=== PATIENT | female | born 1955 | race American Indian/Alaskan Native ===

== ENCOUNTER 2020-09-24 07:52 | Outpatient (CLI) | payer BC ==
--- NOTE | 2020-09-24 09:02 | Ultrasound Report ---
ULTRASOUND ABDOMEN, COMPLETE INDICATION: EPIGASTRIC PAIN, FUNCTIONAL DYSPEPSIA. COMPARISON: None available. FINDINGS: PANCREAS: No significant abnormality. ABDOMINAL AORTA: No significant abnormality. IVC: No significant abnormality.. LIVER: 14.5 cm in length with mild diffuse increased echogenicity compared to the right renal cortex. No focal lesion and normal directional blood flow in the main portal vein. GALLBLADDER: No significant abnormality. BILE DUCTS: No significant abnormality. Common bile duct measures 3.7 mm. KIDNEYS: Right: No significant abnormality Left: No significant abnormality SPLEEN: No significant abnormality. FREE FLUID: None. ADDITIONAL FINDINGS: None. IMPRESSION: Mild diffuse fatty infiltration of the liver. No evidence of gallstones or other signifi cant abnormality. Signer Name: Dante Fajardo MD Signed: 09/24/2020 8:58 AM Workstation Name: [id number]
== END 2020-09-24 07:53 | disposition home or self-care (01) ==
LOC: SPVWC 07:52
PROVIDERS: ATTEND Internal Medicine Gastroenterology
DX: K76.0 Fatty (change of) liver, not elsewhere classified (principal)
CPT/HCPCS: 76700